=== PATIENT | female | born 1945 | race African-American/Black ===

== ENCOUNTER 2020-06-10 09:50 | Outpatient (CLI) | payer MEDICARE ==
--- NOTE | 2020-06-10 10:30 | ULT ---
Exam: Abdominal aortic ultrasound HISTORY: Screening study. Evaluate for abdominal aortic aneurysm COMPARISON: none TECHNIQUE: Grayscale, color flow, Doppler imaging and spectral waveform analysis of the aorta and bro[place] ac arteries FINDINGS: Limited evaluation of the proximal aorta due to bowel gas. Proximal aorta measures 2.5 cm in the sagittal plane Mid aorta measures 1.6 cm in the sagittal plane Distal aorta measures 1.7 cm in the sagittal plane Left and right iliac artery are patent There is triphasic flow in the visualized aorta and iliac arteries IMPRESSION: No aneurysm in the visualized aorta.
== END 2020-06-10 09:51 | disposition home or self-care (01) ==
LOC: BICULT 09:50
PROVIDERS: ATTEND Internal Medicine
DX: Z13.6 Encounter for screening for cardiovascular disorders (principal)
CPT/HCPCS: 76775

== ENCOUNTER 2020-07-28 10:45 | Outpatient (CLI) | payer MEDICARE ==
--- NOTE | 2020-07-28 11:59 | MMO ---
Bilateral MAMMO Bilat Screen [facility]. CLINICAL HISTORY: Patient is 74 years old and is seen for screening. The patient has the following family history of breast cancer: sister, and colon and aunt. The patient has no personal history of cancer. VIEWS: The views performed were: bilateral craniocaudal with tomosynthesis and bilateral mediolateral oblique with tomosynthesis. FILMS COMPARED: The present examination has been compared to prior imaging studies performed at [facility] on 01/30/2014, 05/22/2015, 05/24/2016 and 06/19/2017. This study has been interpreted with the assistance of computer-aided detection. MAMMOGRAM FINDINGS: There are scattered fibroglandular densities. Finding 1: There are stable benign appearing calcifications seen in both breasts. Finding 2: There are stable benign appearing densities seen in both breasts. Finding 3: There is a stable intramammary lymph node seen in the right breast. There are no suspicious masses, suspicious calcifications, or new areas of architectural distortion. IMPRESSION: THERE IS NO MAMMOGRAPHIC EVIDENCE OF MALIGNANCY. A ROUTINE FOLLOW-UP MAMMOGRAM IN 1 YEAR IS RECOMMENDED. THE RESULTS OF THIS EXAM WERE SENT TO THE PATIENT. ACR BI-RADS Category 2 - Benign finding MAMMOGRAPHY NOTE: 1. A negative mammogram report should not delay a biopsy if a dominant of clinically suspicious mass is present. 2. Approximately 10% to 15% of breast cancers are not detected by mammography. 3. Adenosis and dense breasts may obscure an underlying neoplasm. Reported by: SIN ADAMS MD Electonically Signed: [id number]
== END 2020-07-28 10:46 | disposition home or self-care (01) ==
LOC: BICMAMMO 10:45
PROVIDERS: ATTEND Internal Medicine
DX: Z12.31 Encounter for screening mammogram for malignant neoplasm of breast (principal); Z80.3 Family history of malignant neoplasm of breast
CPT/HCPCS: 77063; 77067

== ENCOUNTER 2021-08-24 12:55 | Outpatient (CLI) | payer MEDICARE | END 2021-08-24 12:56 | disposition home or self-care (01) | LOC: BICMAMMO 12:55 | PROVIDERS: ATTEND Internal Medicine | DX: Z12.31 Encounter for screening mammogram for malignant neoplasm of breast (principal); Z13.820 Encounter for screening for osteoporosis; N95.1 Menopausal and female climacteric states; Z80.3 Family history of malignant neoplasm of breast | CPT/HCPCS: 77063; 77067; 77080 ==

== ENCOUNTER 2022-08-31 13:16 | Outpatient (CLI) | payer MEDICARE | END 2022-08-31 13:17 | disposition home or self-care (01) | LOC: BICMAMMO 13:16 | PROVIDERS: ATTEND Internal Medicine | DX: Z12.31 Encounter for screening mammogram for malignant neoplasm of breast (principal); Z91.89 Other specified personal risk factors, not elsewhere classified; Z80.3 Family history of malignant neoplasm of breast | CPT/HCPCS: 77063; 77067 ==